=== PATIENT | female | born 1990 | race Caucasian/White ===

== ENCOUNTER → 2020-10-16 | Outpatient (CLI) | payer SELFPAY ==
--- NOTE | 2020-10-16 10:08 | RADIOLOGY REPORT (SQ) ---
EXAM DESCRIPTION: U/S OB 14+ TRNABD 1GES W/O DOP IMAGES COMPLETED DATE/TIME: 10/16/2020 9:45 am REASON FOR STUDY: Z34.83 ENCOUNTER FOR SUPERVISION OF OTHER NORMAL , THIRD TRIMESTER Z34.83 ENCOUNTER FOR SUPRVSN OF NORMAL , THIRD TRIM COMPARISON: None. TECHNIQUE: Static and Dynamic grayscale imaging performed of gravid uterus using transabdominal appr oach. Additional selected color Doppler and spectral images recorded. All stored on PACS. LIMITATIONS: None. FINDINGS: FETUSES SEEN:1 EGA: 34 weeks 2 days Calculated using BPD,FL,HC,AC documented on images. No discrepancy with clinica l dates. MAIA: 11/25/2020 EFW: 2416 grams PERCENTILE: 44% MANUEL: 7.2 cm. LVP-- 2.8 cm x 2.2 cm PLACENTA: Posterior. PRESENTATION: Cephalic. ANATOMY: HEART RATE: 158 beats per minute. FOUR CHAMBER HEART: Visualized. THREE VESSEL CORD: Yes. CORD INSERTION: Visualized. KIDNEYS AND BLADDER: Right renal pelvis measures 3.0 mm in AP diameter. Left kidney and bladder marc ear normal. STOMACH: Visualized. Appears normal. SPINE: Normal as visualized. BRAIN AND LATERAL VENTRICLES: Lateral ventricles not seen. Normal brain as visualized. OTHER: Only one extremity visualized. MATERNAL ADNEXA: Maternal ovaries not visualized. CERVICAL LENGTH: 3.3 cm. Closed. OTHER: No other significant finding. IMPRESSION: LIVING INTRAUTERINE . ESTIMATED GESTATIONAL AGE: 34 weeks 2 days. Right renal pelvis measures 3.0 mm in AP diameter. Examination is very limited due to gestational age. Additional findings as above. Trimester of : Third trimester - 28 weeks to delivery. TECHNICAL DOCUMENTATION: JOB ID: [id number] [employer]- All Rights Reserved Reading location - IP/workstation name: [email or web address]
== END ==
LOC: EDBD 08:37 → RAD 08:37
PROVIDERS: ATTEND Midwife
DX: Z34.83 Encounter for supervision of other normal pregnancy, third trimester (principal); Z3A.34 34 weeks gestation of pregnancy
CPT/HCPCS: 76805